=== PATIENT | female | born 1965 | race Caucasian/White ===

== ENCOUNTER → 2017-02-05 | Outpatient (CLI) | payer BC ==
[2017-02-05 10:15] LABS: CH 28.9; HCT 44.5 % (34.0-46.0); HDW 2.65; HGB 14.2 gm/dL (11.4-16.0); MCHC 31.8 g/dL (31.0-37.0); MCV 91.1 fL (80.0-100.0); Mean Platelet Volume 7.5; RBC 4.89 m/uL (3.80-5.40); RDW 13.7 % (11.5-15.5); WBC 8.5 k/uL (3.8-10.6)
[2017-02-05 10:46] LABS: Anion Gap 9 mmol/L; Blood Urea Nitrogen 21 mg/dL (7-17); Calcium 9.3 mg/dL (8.4-10.2); Carbon Dioxide 25 mmol/L (22-30); Chloride 106 mmol/L (98-107); Glucose 81 mg/dL (74-99); Non-African American GFR(MDRD) >60 (>60 ml/min/1.73 sqM); Potassium 4.6 mmol/L (3.5-5.1); Sodium 140 mmol/L (137-145)
== END ==
LOC: LABWHC1 09:08
PROVIDERS: ATTEND Family Medicine
DX: Z01.818 Encounter for other preprocedural examination (principal)
CPT/HCPCS: 80048; 85027

== ENCOUNTER → 2017-12-13 | Outpatient (CLI) | payer BC ==
--- NOTE | 2017-12-13 21:14 | CONS ---
CONSULTATION DATE OF SERVICE: 12/13/2017 This patient is a 52-year-old lady who has been evaluated in the sleep center for possible obstructive sleep apnea-hypopnea syndrome. HISTORY OF PRESENT ILLNESS/SLEEP-WAKE EVALUATION: Patient's usual sleep schedule is from 9 p.m. to 6:30 or 7 a.m. on working days and until 6:30 or 8 a.m. on weekends. Sometimes she has problems with falling asleep, has TV set in the bedroom. She sleeps on the back position. According to her , she snores loudly and possibly has episodes of stopped breathing during sleep. She grinds her teeth, has panic attacks during the night. She wakes up from sleep up to 6 times with one episode of nocturia. No history of hypnagogic hallucinations, sleep paralysis or cataplexy. In the morning she wakes up tired, worries about her sleep, has problems with memory, irritability, depression, anxiety. [place] Sleepiness Scale is increased at 11. PAST MEDICAL HISTORY: 1. Anxiety. 2. Hand arthritis. PAST SURGICAL HISTORY: 1. Left wrist surgery. 2. . MEDICATIONS: 1. Effexor. 2. Trazodone. 3. Naproxen. SOCIAL HISTORY: Negative for smoking. Alcohol consumption is occasional. FAMILY HISTORY: Arthritis, bronchitis, snoring, diabetes in grandfather. REVIEW OF SYSTEMS: Multiple awakenings from sleep, tiredness and sleepiness during the day. PHYSICAL EXAMINATION: Pleasant lady without distress. VITAL SIGNS: BP 141/71 in the right arm and 134/83 in the left arm. Pulse 72, RR 16, height 5 feet 2 inches, weight 216, BMI 39.5. Neck 14-1/2 inches in circumference. Temperature 98.0. Oxygen saturation at room air 98%. HEENT: PERRLA, EOMI. Evaluation of oropharynx showed tongue protrudes midline; low position of soft palate. Wide pillars. Short distance between soft palate and posterior pharyngeal wall. Some asymmetry of the nose. Nasal septum deviation. Slight restriction of nasal breathing. NECK: Supple. No JVD. Thyroid is not palpable. LUNGS: Clear to percussion and to auscultation. Good air exchange. No wheezing or rhonchi. HEART: S1, S2 regular. No murmurs, gallops or rubs. ABDOMEN: Obese. EXTREMITIES : No clubbing or cyanosis. KNOBBER: Awake, alert, and oriented X3. Cranial nerves 2 to 7 intact. There is no fasciculation or atrophy. noted. No focal deficits observed. IMPRESSION: 1. Snoring, possibly witnessed episodes of stopped breathing during sleep, low position of soft palate, wide pillars, small oropharyngeal air space, some restriction of nasal breathing, excessive daytime sleepiness, [place] Sleepiness Scale 11; obstructive sleep apnea-hypopnea syndrome. 2. Obesity. BMI 39.5. 3. Possible nasal septum deviation. 4. Anxiety. 5. History of hand arthritis. 6. Status post left wrist surgery with replacement bone without a bone. 7. Status post section. PLAN: 1. Home sleep apnea test for evaluation of patient's breathing during sleep. 2. CPAP/BiPAP titration if sleep study confirms obstructive sleep apnea-hypopnea syndrome. 3. Preferable position during sleep on the side. 4. No driving if patient feels any sleepiness. Patient is aware of civil and criminal liability for unsafe driving. 5. I will see patient for follow-up visit to explain results of testing and to formulate a plan. Thank you very much for referring this patient for consultation. Sincerely, Valentin Foy MD, PhD, FAASM Diplomat of [place] [employer] [employer] Ukrainian Folk Arts Instructor of [facility] [place] MMODL / LIVIAN: [id number] /
== END | disposition home or self-care (01) ==
LOC: SLEEP 16:09
PROVIDERS: ATTEND Internal Medicine
DX: G47.33 Obstructive sleep apnea (adult) (pediatric) (principal); E66.9 Obesity, unspecified; F41.9 Anxiety disorder, unspecified; Z87.39 Personal history of other diseases of the musculoskeletal system and connective tissue; Z98.890 Other specified postprocedural states; Z68.39 Body mass index [BMI] 39.0-39.9, adult; Z79.899 Other long term (current) drug therapy
CPT/HCPCS: 99211

== ENCOUNTER → 2018-02-14 | Outpatient (CLI) | payer BC ==
--- NOTE | 2018-02-14 18:49 | PN ---
PROGRESS NOTE DATE OF SERVICE: 02/14/2018 This patient is a 52-year-old lady who has been followed in the sleep center for treatment of obstructive sleep apnea-hypopnea syndrome. Recently patient had a home sleep apnea test which documented obstructive sleep apnea-hypopnea syndrome, and subsequently patient was started on treatment with CPAP. She is able to use her CPAP equipment every night. She feels better with the machine; no sleepiness. [place] Sleepiness Scale is 3. Her sleep is better, and again her feeling during the day is better. Patient is using a portable CPAP unit because she travels a lot. She brought her CPAP unit with her, but this unit does not have any information about usage of equipment and it is in automatic regimen. I cannot read apnea-hypopnea index or compliance reading from this machine. PHYSICAL EXAMINATION: GENERAL A pleasant lady in no distress. VITAL SIGNS: BP 114/73, HR 76, RR 16, weight 210, temperature 97.6, oxygen saturation at room air 97%. HEENT: PERRLA, EOMI. Evaluation of oropharynx showed tongue protrudes midline; low position of soft palate. NECK: Supple. No JVD. Thyroid is not palpable. LUNGS: Clear to percussion and to auscultation. Good air exchange. No wheezing or rhonchi. HEART: S1, S2 regular. No murmurs, gallops or rubs. ABDOMEN: Soft and nontender. Bowel sounds are present. No organomegaly appreciated. EXTREMITIES : No clubbing or cyanosis. STRAINER TENDER: Awake, alert, and oriented X3. Cranial nerves 2 to 7 intact. There is no fasciculation or atrophy. noted. No focal deficits observed. IMPRESSION: 1. Obstructive sleep apnea-hypopnea syndrome. Patient is benefitting from CPAP treatment. 2. Obesity. 3. Anxiety. 4. History of hand arthritis, status post left wrist surgery. 5. Status post . PLAN: 1. We will get reading from auto PAP machine. 2. Continue treatment with CPAP every night for the whole night. 3. Losing weight. 4. Sleep hygiene with regular time in bed for at least 8 hours. 5. No driving if feeling any sleepiness. Thank you very much for allowing me to participate in the management of your patient. Sincerely, Valentin Foy MD, PhD, FAASM Diplomat of [employer] [employer] Rag Washer of [facility] [place] MMBEBE / SKY: [id number] /
== END | disposition home or self-care (01) ==
LOC: SLEEP 10:01
PROVIDERS: ATTEND Internal Medicine
DX: G47.33 Obstructive sleep apnea (adult) (pediatric) (principal); E66.9 Obesity, unspecified; F41.9 Anxiety disorder, unspecified; M19.049 Primary osteoarthritis, unspecified hand; Z98.890 Other specified postprocedural states; Z99.89 Dependence on other enabling machines and devices

== ENCOUNTER → 2018-10-17 | Outpatient (CLI) | payer BC ==
--- NOTE | 2018-10-17 14:14 | SFUN ---
SLEEP CENTER FOLLOW UP NOTE DATE OF SERVICE: 10/17/2013 A 53-year-old lady who has been followed in the Sleep Center for treatment of obstructive sleep apnea-hypopnea syndrome. Patient is using her CPAP equipment every night for the whole night without any significant problems related to mask fitting, pressure or humidification. Today is her visit with a new CPAP unit. I checked CPAP unit, range of the pressure 5-16, average pressure is 10 cm of water. Leak is 10 L/minute which is normal range. Apnea-hypopnea index only 1.0, which is absolutely normal. Usage is / nights more than 4 hours, average 7.3 hours per night, which is normal. The patient sleeps well with the machine, feels well during the day. [place] Sleepiness Scale is only 3, which is normal. MEDICATIONS: Effexor, naproxen. PHYSICAL EXAM: Patient in no distress. BP 127/84, HR 68, RR 16, weight 215.8, temperature 98.3, oxygen saturation at room air 98%. OROPHARYNX: Low position of the soft palate. ABDOMEN: Slightly obese. Neck Supple, no JVD. Thyroid is not palpable. LUNGS Clear to percussion and to auscultation. Good air exchange. No wheezing or rhonchi. HEART S1, S2 regular. No murmurs, gallops, or rubs. EXTREMITIES No clubbing or cyanosis. STAGE SETTING PAINTER APPRENTICE Awake, alert, and oriented X3. Cranial nerves 2 to 7 intact. There is no fasciculation or atrophy. noted. No focal deficits observed. IMPRESSION: 1. Obstructive sleep apnea-hypopnea syndrome. Patient demonstrated great compliance with treatment, benefitting from treatment. 2. Obesity. 3. History of anxiety. 4. History of hand arthritis, status post left wrist surgery. 5. Status post . PLAN: 1. Patient will continue to use CPAP equipment every night for the whole night. 2. Will maintain prescriptions for all necessary CPAP supplies. 3. Losing weight. 4. Sleep hygiene with regular time bed for at least 8 hours. 5. No driving if feeling sleepiness. 6. Followup visit in 1 year or earlier if patient has any problems. Thank you very much for allowing me to participate in the management of your patient. Sincerely, Valentin Foy MD, PhD, FAASM Diplomat of [place] [employer] [employer] Internal Medicine Spray Painter of [facility] [place] MMBEBE / SKY: [id number] /
== END ==
LOC: SLEEP 13:13
PROVIDERS: ATTEND Internal Medicine
DX: G47.33 Obstructive sleep apnea (adult) (pediatric) (principal); E66.9 Obesity, unspecified; F41.9 Anxiety disorder, unspecified; M19.049 Primary osteoarthritis, unspecified hand; Z98.890 Other specified postprocedural states; Z99.89 Dependence on other enabling machines and devices; Z79.899 Other long term (current) drug therapy

== ENCOUNTER 2020-05-20 10:48 | Emergency (ER) | payer BC ==
[2020-05-20 10:59] VITALS: RESP 18
[2020-05-20 11:42] LABS: Appearance,Urine Cloudy (Clear); Bacteria,Urine Many /hpf; Bilirubin,Urine Negative (Negative); Blood,Urine Moderate (Negative); Color,Urine Yellow; Glucose,Urine (UA) Negative (Negative); Hyaline Casts,Urine 1 /lpf (0-2); Ketones,Urine Negative (Negative); Leukocyte Esterase,Urine Large (Negative); Mucus,Urine Rare /hpf; Nitrite,Urine Negative (Negative); PH, Urine 5.5 (5.0-8.0); Protein,Urine 1+ (Negative); RBC,Urine 31 /hpf (0-5); Specific Gravity,Urine 1.016 (1.001-1.035); Squamous Epithelial Cell,Urine 5 /hpf (0-4); Urobilinogen,Urine <2.0 mg/dL (<2.0); WBC,Urine >182 /hpf (0-5)
[2020-05-20 12:07] LABS: Basophils # (A) 0.1 k/uL (0-0.2); Basophils % (A) 1 %; Eosinophils # (A) 0.3 k/uL (0-0.7); Eosinophils % (A) 2 %; HCT 38.1 % (34.0-46.0); HGB 12.1 gm/dL (11.4-16.0); Lymphocytes % (A) 22 %; MCH 27.9 pg (25.0-35.0); MCHC 31.8 g/dL (31.0-37.0); MCV 87.7 fL (80.0-100.0); Mean Platelet Volume 7.6; Monocytes # (A) 0.5 k/uL (0-1.0); Monocytes % (A) 4 %; Neutrophils # (A) 9.4 k/uL (1.3-7.7); Neutrophils % (A) 68 %; Platelet Count 373 k/uL (150-450); RBC 4.34 m/uL (3.80-5.40); RDW 14.3 % (11.5-15.5); WBC 13.9 k/uL (3.8-10.6)
--- NOTE | 2020-05-20 12:11 | XR ---
EXAMINATION TYPE: XR chest 2V DATE OF EXAM: 05/20/2020 COMPARISON: NONE HISTORY: Fever TECHNIQUE: Frontal and lateral views of the chest are obtained. FINDINGS: There is no focal air space opacity, pleural effusion, or pneumothorax seen. The cardiac silhouette size is within normal limits. The osseous structures are intact. IMPRESSION: No acute cardiopulmonary process.
--- NOTE | 2020-05-20 12:15 | ED ---
General Adult HPI - General Chief complaint: Fever Stated complaint: fever Time Seen by Provider: 05/20/20 11:02 Source: patient, RN notes reviewed Mode of arrival: ambulatory Limitations: no limitations - History of Present Illness Initial comments: Patient is a pleasant 55-year-old female presenting to the emergency department with fever. Onset of symptoms was a week or so ago. Patient was seen at urgent care and diagnosed with UTI. Patient has been on Macrobid for the past week without improvement of fevers. Patient also has fatigue and myalgias. No dysuria or hematuria or urinary frequency. No cough or dyspnea. No abdominal pain. Patient states there may be some decrease in her sense of taste. - Related Data Home Medications Medication Instructions Recorded Confirmed Acetaminophen/Diphenhydramine 1 tab PO DAILY PRN 05/20/20 05/20/20 [Tylenol PM 500-25mg] Multivitamins, Thera [Multivitamin 1 tab PO DAILY 05/20/20 05/20/20 (formulary)] Naproxen 500 mg PO BID PRN 05/20/20 05/20/20 Nitrofurantoin Monohyd/M-Cryst 100 mg PO BID 05/20/20 05/20/20 [Macrobid] Venlafaxine HCl [Effexor XR] 150 mg PO DAILY 05/20/20 05/20/20 metFORMIN HCL ER [Glucophage Xr] 500 mg PO DAILY 05/20/20 05/20/20 Previous Rx's Medication Instructions Recorded Sulfamethox-Tmp 800-160Mg [Bactrim 1 each PO Q12HR #20 tab 05/20/20 DS 800-160 mg] Allergies Allergy/AdvReac Type Severity Reaction Status Date / Time No Known Allergies Allergy Verified 05/20/20 11:30 Review of Systems ROS Statement: Those systems with pertinent positive or pertinent negative responses have been documented in the HPI. ROS Other: All systems not noted in ROS Statement are negative. Constitutional: Reports: fever, chills Eyes: Denies: eye pain ENT: Denies: ear pain Respiratory: Denies: cough, dyspnea Cardiovascular: Denies: chest pain Endocrine: Reports: fatigue Gastrointestinal: Denies: abdominal pain, nausea, vomiting Genitourinary: Denies: urgency, dysuria Musculoskeletal: Denies: back pain Skin: Denies: rash Neurological: Denies: weakness Past Medical History Past Medical History: Sleep Apnea/CPAP/BIPAP History of Any Multi-Drug Resistant Organisms: None Reported Past Surgical History: Section, Orthopedic Surgery Past Psychological History: Anxiety Smoking Status: Never smoker Past Alcohol Use History: None Reported Past Drug Use History: None Reported General Exam Limitations: no limitations General appearance: alert, in no apparent distress Head exam: Present: normocephalic Eye exam: Present: normal appearance ENT exam: Present: normal oropharynx Neck exam: Present: normal inspection Respiratory exam: Present: normal lung sounds bilaterally Cardiovascular Exam: Present: regular rate, normal rhythm GI/Abdominal exam: Present: soft. Absent: tenderness Extremities exam: Present: normal inspection. Absent: pedal edema, calf tenderness Back exam: Present: normal inspection Neurological exam: Present: alert Psychiatric exam: Present: normal affect, normal mood Course Vital Signs 05/20/20 05/20/20 10:55 12:10 Temperature 98.8 F 98.8 F Pulse Rate 100 Respiratory 18 Rate Blood Pressure 117/72 O2 Sat by Pulse 96 96 Oximetry Medical Decision Making - Medical Decision Making Patient reevaluated and resting comfortably in bed. Patient updated on results and plan. Patient is comfortable with discharge home. Patient is agreeable with close follow-up with her doctor for repeat liver function testing and resul ts from urine culture and alicea virus testing. - Lab Data Result diagrams: 05/20/20 11:54 05/20/20 11:54 Lab Results 05/20/20 05/20/20 05/20/20 Range/Units 11:26 11:54 11:54 WBC 13.9 H (3.8-10.6) k/uL RBC 4.34 (3.80-5.40) m/uL Hgb 12.1 (11.4-16.0) gm/dL Hct 38.1 (34.0-46.0) % MCV 87.7 (80.0-100.0) fL MCH 27.9 (25.0-35.0) pg MCHC 31.8 (31.0-37.0) g/dL RDW 14.3 (11.5-15.5) % Plt Count 373 (150-450) k/uL Neutrophils % 68 % Lymphocytes % 22 % Monocytes % 4 % Eosinophils % 2 % Basophils % 1 % Neutrophils # 9.4 H (1.3-7.7) k/uL Lymphocytes # 3.0 (1.0-4.8) k/uL Monocytes # 0.5 (0-1.0) k/uL Eosinophils # 0.3 (0-0.7) k/uL Basophils # 0.1 (0-0.2) k/uL PT 10.1 (9.0-12.0) sec INR 1.0 (<1.2) APTT 24.2 (22.0-30.0) sec Sodium (137-145) mmol/L Potassium (3.5-5.1) mmol/L Chloride (98-107) mmol/L Carbon Dioxide (22-30) mmol/L Anion Gap mmol/L BUN (7-17) mg/dL Creatinine (0.52-1.04) mg/dL Est GFR (CKD-EPI)AfAm (>60 ml/min/1.73 sqM) Est GFR (CKD-EPI)NonAf (>60 ml/min/1.73 sqM) Glucose (74-99) mg/dL Plasma Lactic Acid Iglesia (0.7-2.0) mmol/L Calcium (8.4-10.2) mg/dL Magnesium (1.6-2.3) mg/dL Total Bilirubin (0.2-1.3) mg/dL AST (14-36) U/L ALT (4-34) U/L Alkaline Phosphatase (38-126) U/L Lactate Dehydrogenase (313-618) U/L C-Reactive Protein (<10.0) mg/L Total Protein (6.3-8.2) g/dL Albumin (3.5-5.0) g/dL Urine Color Yellow Urine Appearance Cloudy H (Clear) Urine pH 5.5 (5.0-8.0) Ur Specific Ronda 1.016 (1.001-1.035) Urine Protein 1+ H (Negative) Urine Glucose (UA) Negative (Negative) Urine Ketones Negative (Negative) Urine Blood Moderate H (Negative) Urine Nitrite Negative (Negative) Urine Bilirubin Negative (Negative) Urine Urobilinogen <2.0 (<2.0) mg/dL Ur Leukocyte Esterase Large H (Negative) Urine RBC 31 H (0-5) /hpf Urine WBC >182 H (0-5) /hpf Urine WBC Clumps Few H (None) /hpf Ur Squamous Epith Cells 5 H (0-4) /hpf Urine Bacteria Many H (None) /hpf Hyaline Casts 1 (0-2) /lpf Urine Mucus Rare H (None) /hpf 05/20/20 05/20/20 Range/Units 11:54 11:54 WBC (3.8-10.6) k/uL RBC (3.80-5.40) m/uL Hgb (11.4-16.0) gm/dL Hct (34.0-46.0) % MCV (80.0-100.0) fL MCH (25.0-35.0) pg MCHC (31.0-37.0) g/dL RDW (11.5-15.5) % Plt Count (150-450) k/uL Neutrophils % % Lymphocytes % % Monocytes % % Eosinophils % % Basophils % % Neutrophils # (1.3-7.7) k/uL Lymphocytes # (1.0-4.8) k/uL Monocytes # (0-1.0) k/uL Eosinophils # (0-0.7) k/uL Basophils # (0-0.2) k/uL PT (9.0-12.0) sec INR (<1.2) APTT (22.0-30.0) sec Sodium 138 (137-145) mmol/L Potassium 3.9 (3.5-5.1) mmol/L Chloride 103 (98-107) mmol/L Carbon Dioxide 27 (22-30) mmol/L Anion Gap 8 mmol/L BUN 27 H (7-17) mg/dL Creatinine 0.77 (0.52-1.04) mg/dL Est GFR (CKD-EPI)AfAm >90 (>60 ml/min/1.73 sqM) Est GFR (CKD-EPI)NonAf 88 (>60 ml/min/1.73 sqM) Glucose 109 H (74-99) mg/dL Plasma Lactic Acid Iglesia 0.8 (0.7-2.0) mmol/L Calcium 9.1 (8.4-10.2) mg/dL Magnesium 2.0 (1.6-2.3) mg/dL Total Bilirubin 0.7 (0.2-1.3) mg/dL AST 88 H (14-36) U/L ALT 101 H (4-34) U/L Alkaline Phosphatase 359 H (38-126) U/L Lactate Dehydrogenase 641 H (313-618) U/L C-Reactive Protein 229.0 H (<10.0) mg/L Total Protein 6.2 L (6.3-8.2) g/dL Albumin 3.2 L (3.5-5.0) g/dL Urine Color Urine Appearance (Clear) Urine pH (5.0-8.0) Ur Specific Ronda (1.001-1.035) Urine Protein (Negative) Urine Glucose (UA) (Negative) Urine Ketones (Negative) Urine Blood (Negative) Urine Nitrite (Negative) Urine Bilirubin (Negative) Urine Urobilinogen (<2.0) mg/dL Ur Leukocyte Esterase (Negative) Urine RBC (0-5) /hpf Urine WBC (0-5) /hpf Urine WBC Clumps (None) /hpf Ur Squamous Epith Cells (0-4) /hpf Urine Bacteria (None) /hpf Hyaline Casts (0-2) /lpf Urine Mucus (None) /hpf - Radiology Data Radiology results: image reviewed (Chest x-ray shows no acute process) Disposition Clinical Impression: Fever, Urinary tract infection Disposition: HOME SELF-CARE Instructions (If sedation given, give patient instructions): Fever in Adults (ED), Urinary Tract Infection in Women (ED) Additional Instructions: Please follow-up with primary care physician in the next day or 2 for recheck. Have primary care physician check urine culture and coronavirus results. Also have primary care physician schedule repeat testing for liver enzymes. Return for pain, worsening fevers, vomiting, worsening or changing symptoms or other concerns. Prescription sent to pharmacy Prescriptions: Sulfamethox-Tmp 800-160Mg [Bactrim DS 800-160 mg] 1 each PO Q12HR #20 tab Is patient prescribed a controlled substance at d/c from ED?: No Referrals: Jelani Fulton MD [Primary Care Provider] - 1-2 days Time of Disposition: 12:58 Decision Time: 12:56
[2020-05-20 12:20] LABS: ALT 101 U/L (4-34); AST 88 U/L (14-36); African American GFR (CKD) >90 (>60 ml/min/1.73 sqM); Albumin 3.2 g/dL (3.5-5.0); Alkaline Phosphatase 359 U/L (38-126); Anion Gap 8 mmol/L; Blood Urea Nitrogen 27 mg/dL (7-17); Calcium 9.1 mg/dL (8.4-10.2); Carbon Dioxide 27 mmol/L (22-30); Chloride 103 mmol/L (98-107); Glucose 109 mg/dL (74-99); LDH 641 U/L (313-618); Non-African American GFR(CKD) 88 (>60 ml/min/1.73 sqM); Potassium 3.9 mmol/L (3.5-5.1); Sodium 138 mmol/L (137-145); Total Bilirubin 0.7 mg/dL (0.2-1.3); Total Protein 6.2 g/dL (6.3-8.2)
[2020-05-20 12:38] LABS: Partial Thromboplastin Time 24.2 sec (22.0-30.0); Prothrombin Time 10.1 sec (9.0-12.0)
[2020-05-20 13:17] VITALS: BP 121/76; PULSE 84; TEMP 98.7
[2020-05-20 17:07] LABS: Ferritin 390.9 ng/mL (10.0-291.0)
== END 2020-05-20 13:16 | disposition home or self-care (01) ==
LOC: EC 10:48
DX: N39.0 Urinary tract infection, site not specified (principal); R53.83 Other fatigue; M79.10 Myalgia, unspecified site; F41.9 Anxiety disorder, unspecified; G47.30 Sleep apnea, unspecified; Z99.89 Dependence on other enabling machines and devices; Z20.828 Contact with and (suspected) exposure to other viral communicable diseases; Z79.84 Long term (current) use of oral hypoglycemic drugs; Z79.899 Other long term (current) drug therapy
CPT/HCPCS: 99283; 36415; 80053; 82728; 83605; 83615; 83735; 85025; 85610; 85730; 86140; 81001; 87040; 87086; 87077; 87186; 84145; 71046; U0003

== ENCOUNTER → 2020-08-12 | Outpatient (CLI) | payer BC ==
--- NOTE | 2020-08-12 19:46 | SFUN ---
SLEEP CENTER FOLLOW UP NOTE DATE OF SERVICE: 08/12/2020 This patient is a 55-year-old lady who has been followed in Sleep Center for treatment of obstructive sleep apnea-hypopnea syndrome. I have not seen the patient for close to 2 years. She continues to use her CPAP equipment every night. No snoring with CPAP. [place] Sleepiness Scale today is 4, which is normal. I checked her CPAP equipment. Range of pressure is 5-16, average pressure 11.4 cm of water. Usage is 30/30 nights, and 29/30 nights for more than 4 hours with average usage 7.8 hours per night. Leak is 11 L/minute, which is acceptable. Apnea-hypopnea index is only 1.0, which is normal. Sometimes the patient has difficulties breathing through the nose, but not always; just occasionally. She is using a nasal mask, Eson 2, medium size. Her medication is Effexor XR 150 mg once a day. PHYSICAL EXAMINATION: GENERAL: A pleasant patient in no distress. VITAL SIGNS: BP 148/80, HR 64, RR 15, height 5 feet 2 inches, weight 239, BMI 43.7, temperature 98.0, oxygen saturation on room air 98%. HEENT: PERRLA, EOMI. Evaluation of oropharynx showed tongue protrudes midline. Low position of soft palate. NECK: Supple. No JVD. Thyroid is not palpable. LUNGS: Clear to percussion and to auscultation. Good air exchange. No wheezing or rhonchi. HEART: S1, S2 regular. No murmurs, gallops or rubs. ABDOMEN: Obese. EXTREMITIES: No clubbing or cyanosis. PENOLOGY PROFESSOR: Awake, alert, and oriented X3. Cranial nerves 2 to 7 intact. There is no fasciculation or atrophy. noted. No focal deficits observed. IMPRESSION: 1. Obstructive sleep apnea-hypopnea syndrome. Patient demonstrated close to 100% compliance with CPAP therapy. 2. History of anxiety. 3. Obesity. 4. History of hand arthritis, status post left wrist surgery. 5. Status post . PLAN: 1. Patient will continue to use PAP equipment every night for the whole night. 2. Sleep hygiene with regular time in bed for at least 7-1/2 to 8 hours. 3. Precautions related to driving. No driving if feeling sleepiness. 4. I will maintain all necessary prescription for PAP supplies including mask, tube, filters. 5. Watching weight. 6. No driving if feeling sleepiness. 7. Follow-up visit in 6 months or earlier if patient has any problems. 8. The patient may use nasal strips to improve her breathing through the nose during sleep. Thank you very much for allowing me to participate in the management of your patient. Sincerely, Valentin Foy MD, PhD, FAASM Diplomat of [employer] Senior Cyber Security Analyst of [facility] [place] MMODL / IJN: [id number] /
== END | disposition home or self-care (01) ==
LOC: SLEEP 13:38
PROVIDERS: ATTEND Internal Medicine
DX: G47.33 Obstructive sleep apnea (adult) (pediatric) (principal); E66.9 Obesity, unspecified; Z86.59 Personal history of other mental and behavioral disorders; Z99.89 Dependence on other enabling machines and devices

== ENCOUNTER → 2020-10-13 | Outpatient (CLI) | payer BC ==
--- NOTE | 2020-10-13 11:54 | MM ---
Reason for exam: screening (asymptomatic). Last mammogram was performed 5 years and 6 months ago. History: Took hormonal contraceptives for 3 years. Physical Findings: A clinical breast exam by your physician is recommended on an annual basis and results should be correlated with mammographic findings. MG Screening Mammo w CAD Bilateral CC and MLO view(s) were taken. Prior study comparison: April 15, 2015, bilateral MG screening mammo w CAD. There are scattered fibroglandular densities. There is no discrete abnormality. No significant changes when compared with prior studies. ASSESSMENT: Benign, BI-RAD 2 RECOMMENDATION: Routine screening mammogram of both breasts in 1 year.
== END | disposition home or self-care (01) ==
LOC: RADMAMWWP 07:09
PROVIDERS: ATTEND Family Medicine
DX: Z12.31 Encounter for screening mammogram for malignant neoplasm of breast (principal)
CPT/HCPCS: 77067

== ENCOUNTER → 2021-02-24 | Outpatient (CLI) | payer BC ==
--- NOTE | 2021-02-24 22:05 | SFUN ---
SLEEP CENTER FOLLOW UP NOTE DATE OF SERVICE: 02/24/2021 This 55-year-old lady has been followed in Sleep Center for treatment of obstructive sleep apnea-hypopnea syndrome. The patient continues to use her CPAP equipment every night for the whole night. No snoring with the machine, although the patient's weight has increased significantly since her previous visit by about 20 pounds, even though she is doing a lot of daytime exercise. [place] Sleepiness Scale were 30. I checked her CPAP unit. Range of the pressure is 5 to 16, average pressure 9.9. Usage is 29/30 nights, and 27/30 for more than 4 hours, average 6.5 hours per night. Leak is only 2 L/minute. Apnea-hypopnea index is 0.6, absolutely perfect. MEDICATIONS: None at the present time. PHYSICAL EXAMINATION: GENERAL: A pleasant patient in no distress. VITAL SIGNS: BP 145/84, HR 55, RR 15, height 5 feet 1-1/2 inches, weight 257.8 pounds, temperature 97.4, oxygen saturation at room air 98%. HEENT: PERRLA, EOMI. Evaluation of oropharynx showed tongue protrudes midline. Low position of soft palate. NECK: Supple. No JVD. Thyroid is not palpable. LUNGS: Clear to percussion and to auscultation. Good air exchange. No wheezing or rhonchi. HEART: S1, S2 regular. No murmurs, gallops or rubs. ABDOMEN: Obese. EXTREMITIES: No clubbing or cyanosis. ROLLER PRINTER: Awake, alert, and oriented X3. Cranial nerves 2 to 7 intact. There is no fasciculation or atrophy. noted. No focal deficits observed. IMPRESSION: 1. Obstructive sleep apnea-hypopnea syndrome. Patient demonstrated great compliance with treatment, benefitting from treatment. Normalization of respiration on CPAP. 2. History of anxiety. 3. History of polycystic ovarian syndrome. 4. Obesity. Patient's weight increased by 18 pounds since previous visit. 5. History of hand arthritis, status post left wrist surgery. 6. Status post section. PLAN: 1. Patient will continue to use PAP equipment every night for the whole night. 2. Sleep hygiene with regular time in bed for at least 7-1/2 to 8 hours. 3. Precautions related to driving. No driving if feeling sleepiness. 4. I will maintain all necessary prescription for PAP supplies including mask, tube, filters. 5. Watching and losing weight. 6. Follow-up visit in 6 months or earlier if patient has any problems. Thank you very much for allowing me to participate in the management of your patient. Sincerely, Valentin Foy MD, PhD, FAASM Diplomat of [employer] S3B Multi Sensor Operator of [facility] [place] MMODL / IJN: [id number] /
== END ==
LOC: SLEEP 11:55
PROVIDERS: ATTEND Internal Medicine
DX: G47.33 Obstructive sleep apnea (adult) (pediatric) (principal); F41.9 Anxiety disorder, unspecified; E66.9 Obesity, unspecified; Z98.891 History of uterine scar from previous surgery; Z87.39 Personal history of other diseases of the musculoskeletal system and connective tissue; Z87.42 Personal history of other diseases of the female genital tract

== ENCOUNTER → 2021-11-03 | Outpatient (CLI) | payer BC ==
--- NOTE | 2021-11-03 23:13 | SFUN ---
SLEEP CENTER FOLLOW UP NOTE DATE OF SERVICE: 11/03/2021 This 56-year-old lady has been followed in Sleep Center for treatment of obstructive sleep apnea-hypopnea syndrome. The patient continues to use her CPAP equipment every night for the whole night. No snoring. She is getting her CPAP supplies on time. [place] Sleepiness Scale today is 3, which is normal. I checked her CPAP unit. It is in automatic regimen. Range of the pressure is 5 to 16, average pressure 9.2 cm of water. Usage is 30/30 nights and 29/30 nights for more than 4 hours with average usage 6.6 hours per night. Leak is zero L/minute. Apnea-hypopnea index is 0.4, which is absolutely normal. MEDICATIONS: 1. Effexor 37.5 mg once a day. 2. Adipex once a day. PHYSICAL EXAMINATION: GENERAL: Pleasant patient in no distress. VITAL SIGNS: BP 153/86, HR 71, RR 16, height 5 feet 1-1/2 inches, weight 241.2 pounds, body mass index 44.7, temperature 97.1, oxygen saturation at room air 95%. HEENT: PERRLA, EOMI, evaluation of oropharynx showed tongue protrudes midline. Low position of soft palate. NECK: Supple, no JVD. Thyroid is not palpable. LUNGS: Clear to percussion and to auscultation. Good air exchange. No wheezing or rhonchi. HEART: S1, S2 regular. No murmurs, gallops, or rubs. ABDOMEN: Obese. EXTREMITIES: No clubbing or cyanosis. SOLICITOR PATENT: Awake, alert, and oriented X3. Cranial nerves 2 to 7 intact. There is no fasciculation or atrophy. noted. No focal deficits observed. IMPRESSION: 1. Obstructive sleep apnea-hypopnea syndrome. Patient demonstrated 100% compliance with treatment. Normal respiration on CPAP. 2. Hypertension in the office. 3. History of anxiety. 4. History of polycystic ovary syndrome. 5. Obesity. BMI 44.7. 6. History of hand arthritis, status post left wrist surgery. 7. Status post . PLAN: 1. Monitoring of blood pressure. 2. Low-sodium diet. 3. Patient will continue to use PAP equipment every night for the whole night. 4. Sleep hygiene with regular time in bed for at least 7-1/2 to 8 hours. 5. Precautions related to driving. No driving if feeling sleepiness. 6. I will maintain all necessary prescription for PAP supplies including mask, tube, filters. 7. Watching weight. 8. Follow-up visit in 6 months or earlier if patient has any problems. Thank you very much for allowing me to participate in the management of your patient. Sincerely, Valentin Foy MD, PhD, FAASM Diplomat of [employer] Sleep Medicine Board of [employer] Head Men'S Tennis Coach of [facility] [place] MMODL / IJN: [id number] /
== END ==
LOC: SLEEP 15:12
PROVIDERS: ATTEND Internal Medicine
DX: G47.33 Obstructive sleep apnea (adult) (pediatric) (principal); I10 Essential (primary) hypertension; F41.9 Anxiety disorder, unspecified; E66.9 Obesity, unspecified; Z68.41 Body mass index [BMI] 40.0-44.9, adult; Z87.59 Personal history of other complications of pregnancy, childbirth and the puerperium; Z98.890 Other specified postprocedural states; Z87.39 Personal history of other diseases of the musculoskeletal system and connective tissue; Z99.89 Dependence on other enabling machines and devices; Z87.42 Personal history of other diseases of the female genital tract

== ENCOUNTER → 2022-05-11 | Outpatient (CLI) | payer BC ==
--- NOTE | 2022-05-11 11:25 | P.PN ---
Subjective DATE: [] FOLLOW UP VISIT. Patient with obstructive sleep apnea hypopnea syndrome return to sleep center for follow-up visit. Information from previous visit have been reviewed. Patient is using PAP equipment every night for the whole night, getting PAP supplies in time. The patient does not have significant problems with the mask, PAP unit and humidification. [place] sleepiness scale is 2. I checked PAP unit. PAP unit pressure 5-16, average 9.9 cm H2O. Usage is 90 % for more then 4 hours, average 5.5 hours per night. Leak is 0 l/m, which is perfect. Apnea Hypopnea Index is 0.6, which is normal. MEDICATIONS:1. Effexor 37.5 mg once a day 2. Phentermine 37.5 mg once a day During physical exam: GENERAL: A pleasant patient without any distress. VITAL SIGNS: BP 135/79, HR 66, RR 18, weight 235.4, temperature 96.4, oxygen saturation at room air 98 % . HEENT: PERRLA, EOMI.low position of soft palate, Mallapati 34. NECK: Supple. No JVD. LUNGS: Clear to percussion and to auscultation. Good air exchange. No wheezing or rhonchi. HEART: S1, S2 regular. ABDOMEN: Soft and nontender. Obese EXTREMITIES: No clubbing or cyanosis. ACCOUNTING PROFESSOR: Awake, alert, and oriented x3. No focal deficit. Impressions: 1. Obstructive sleep apnea-hypopnea syndrome. Patient demonstrated great compliance with treatment, benefiting from treatment. 2. Obesity, patient lost 6 pounds since previous visit. 3. History of anxiety. 4. History of polycystic ovary syndrome. 5. History of hand arthritis status post left wrist surgery. 6. Status post . Plan: 1. Continue using PAP equipment every night for the whole night. 2. To change air filter at least 1-2 times per month. 3. PAP unit should stay lower then position of the head. 4. Advised patient to remove all remaining water from humidifier canister daily and make it dry after each usage. Refill canister with fresh distilled water before each usage. 5. Sleep hygiene with regular time in bed for at least 8 hours. 6. Precautions related to driving. No driving if feel any sleepiness. 7. I will maintain prescription for PAP supplies including mask, tube, filters. 8. Follow up visit in 6 months or earlier if patient has any problems. 9. Continue losing weight. Thank you very much for allowing me to participate in the management of your patient. Valentin Foy MD, PhD, FAASM. Diplomat of [employer], Sleep Medicine Board by [employer] Multicut Line Operator of [facility] [place]
== END ==
LOC: SLEEP 11:04
PROVIDERS: ATTEND Internal Medicine
DX: G47.33 Obstructive sleep apnea (adult) (pediatric) (principal); E66.9 Obesity, unspecified; F41.9 Anxiety disorder, unspecified; Z87.42 Personal history of other diseases of the female genital tract; M19.041 Primary osteoarthritis, right hand; Z98.890 Other specified postprocedural states; Z99.89 Dependence on other enabling machines and devices

== ENCOUNTER → 2023-07-05 | Outpatient (CLI) | payer BC ==
--- NOTE | 2023-07-05 11:27 | P.PN ---
Subjective DATE: 07/05/2023 FOLLOW UP VISIT. Patient with obstructive sleep apnea hypopnea syndrome return to sleep center for follow-up visit. Information from previous visit have been reviewed. Patient is using PAP equipment every night for the whole night, getting PAP supplies in time. The patient does not have significant problems with the mask, PAP unit and humidification. [place] sleepiness scale is 1, which is perfect I checked information from PAP unit. PAP unit pressure 5-16, average 8.3cm H2O. Usage is 100 % for more then 4 hours, average 8 hours per night. Leak is perfect only 1.1 l/m. Apnea Hypopnea Index is 0.5, which is normal. MEDICATIONS:1. Wellbutrin 150 mg once a day 2. Vraylar 1.5 mg once a day 3. Wegovy 2.4 mg once a week During physical exam: GENERAL: A pleasant patient without any distress. VITAL SIGNS: BP 119/81, HR 73, RR 16 , weight 227.8, temperature 98.0, oxygen saturation at room air 97 % . HEENT: PERRLA, EOMI.low position of soft palate, Mallapati 3-4 . NECK: Supple. No JVD. LUNGS: Clear to percussion and to auscultation. Good air exchange. No wheezing or rhonchi. HEART: S1, S2 regular. ABDOMEN: Soft and nontender. Slightly obese EXTREMITIES: No clubbing or cyanosis. VOLUNTEER ASSISTANT: Awake, alert, and oriented x3. No focal deficit. Impressions: 1. Obstructive sleep apnea-hypopnea syndrome. Patient demonstrated great compliance with treatment, benefiting from treatment. 2. Obesity, patient lost 8 pounds since previous visit. 3. History of polycystic ovary syndrome. 4. History of hand arthritis, status post left wrist surgery. 5. History of anxiety. 6. Status post . Plan: 1. Continue using PAP equipment every night for the whole night. 2. To change air filter at least 1-2 times per month. 3. PAP unit should stay lower then position of the head. 4. Advised patient to remove all remaining water from humidifier canister daily and make it dry after each usage. Refill canister with fresh distilled water before each usage. 5. Sleep hygiene with regular time in bed for at least 8 hours. 6. Precautions related to driving. No driving if feel any sleepiness. 7. I will maintain prescription for PAP supplies including mask, tube, filters. 8. Watching and continue losing weight. 9. Follow up visit in 6 months or earlier if patient has any problems. Thank you very much for allowing me to participate in the management of your patient. Valentin Foy MD, PhD, FAASM. Diplomat of [place] [employer], Sleep Medicine Board by [place] [employer] Video Surveillance Technician of [facility] [place]
== END ==
LOC: 3 N SLEEP 10:57
PROVIDERS: ATTEND Internal Medicine
DX: G47.33 Obstructive sleep apnea (adult) (pediatric) (principal); E28.2 Polycystic ovarian syndrome; E66.9 Obesity, unspecified; F41.9 Anxiety disorder, unspecified; Z87.39 Personal history of other diseases of the musculoskeletal system and connective tissue; Z96.632 Presence of left artificial wrist joint; Z99.89 Dependence on other enabling machines and devices; Z98.890 Other specified postprocedural states
CPT/HCPCS: 99212

== ENCOUNTER → 2024-01-24 | Outpatient (CLI) | payer BC ==
--- NOTE | 2024-01-24 11:16 | P.PN ---
Subjective DATE: 01/24/2024 FOLLOW UP VISIT. Patient with obstructive sleep apnea hypopnea syndrome return to sleep center for follow-up visit. Information from previous visit have been reviewed. Patient is using PAP equipment every night for the whole night, getting PAP supplies in time. The patient does not have significant problems with the mask, PAP unit and humidification. [place] sleepiness scale is 1. I checked information from PAP unit. PAP unit pressure 5-16, average 9.2 cm H2O. Usage is 100% for more then 4 hours, average 10.5 hours per night. Leak is 2 l/m, which is in acceptable range. Apnea Hypopnea Index is 0.4, which is normal. MEDICATIONS:1. Bupropion 150 mg once a day 2. Trazodone 25 mg as needed 3. Vraylar 1.5 mg once a day 4. Wegovy 0.7 mg once a week During physical exam: GENERAL: A pleasant patient without any distress. VITAL SIGNS: BP 114/75, HR 72, RR 12, weight 206.6, BMI 38.2, temperature 98.1, oxygen saturation room air 97%. HEENT: PERRLA, EOMI.low position of soft palate, Mallapati 3-4 . NECK: Supple. No JVD. LUNGS: Clear to percussion and to auscultation. Good air exchange. No wheezing or rhonchi. HEART: S1, S2 regular. ABDOMEN: Soft and nontender.[] EXTREMITIES: No clubbing or cyanosis. SKI LIFT ATTENDANT: Awake, alert, and oriented x3. No focal deficit. Impressions: 1. Obstructive sleep apnea-hypopnea syndrome. Patient demonstrated great compliance with treatment, benefiting from treatment. 2. Obesity, patient lost 21 pounds since previous visit, present body mass index 38.2. 3. History of polycystic ovary syndrome. 4. History of anxiety. 5. History of hand arthritis status post left wrist surgery. 6. Status post . Plan: 1. Continue using PAP equipment every night for the whole night. 2. To change air filter at least 1-2 times per month. 3. PAP unit should stay lower then position of the head. 4. Advised patient to remove all remaining water from humidifier canister daily and make it dry after each usage. Refill canister with fresh distilled water before each usage. 5. Sleep hygiene with regular time in bed for at least 8 hours. 6. Precautions related to driving. No driving if feel any sleepiness. 7. I will maintain prescription for PAP supplies including mask, tube, filters. 8. Follow up visit in 6 months or earlier if patient has any problems. 9. Watching and continue losing weight. Thank you very much for allowing me to participate in the management of your patient. Valentin Foy MD, PhD, FAASM. Diplomat of [place] [employer] Sleep Medicine, Sleep Medicine Board by [place] [employer] Medicine Export Administrator of [facility] [place]
== END ==
LOC: 3 N SLEEP 10:35
PROVIDERS: ATTEND Internal Medicine
DX: G47.33 Obstructive sleep apnea (adult) (pediatric) (principal); E66.9 Obesity, unspecified; Z87.42 Personal history of other diseases of the female genital tract; Z86.59 Personal history of other mental and behavioral disorders; Z68.38 Body mass index [BMI] 38.0-38.9, adult; Z98.890 Other specified postprocedural states; Z87.39 Personal history of other diseases of the musculoskeletal system and connective tissue; Z99.89 Dependence on other enabling machines and devices
CPT/HCPCS: 99212

== ENCOUNTER → 2024-07-09 | Outpatient (CLI) | payer BC ==
--- NOTE | 2024-07-16 07:50 | MM ---
Reason for Exam: Screening (asymptomatic). Last mammogram was performed 3 year(s) and 9 month(s) ago. Patient History: Menarche at age 14. Patient used Hormonal Contraceptives for 3 years. Risk Values: Adamaris 5 year model risk: 0.9%. NCI Lifetime model risk: 5.7%. Prior Study Comparison: 12/18/2000 Bilateral Screening Mammogram, [facility]. 04/15/2015 Bilateral Screening Mammogram, [facility]. 10/13/2020 Bilateral Screening Mammogram, [facility]. Tissue Density: The breasts are heterogeneously dense, which may obscure small masses. Findings: Analyzed By CAD. Benign-appearing calcifications. No suspicious grouped calcifications. There is an asymmetric density in the central lower margin of the breast. Recommend spot compression view. Overall Assessment: Incomplete: need additional imaging evaluation, BI-RAD 0 Management: Diagnostic Mammogram of the left breast. . Patient should continue monthly self-breast exams. A clinical breast exam by your physician is recommended on an annual basis. This exam should not preclude additional follow-up of suspicious palpable abnormalities. Note on Adamaris scores and lifetime risk: 1. A Adamaris score greater than 3% is considered moderate risk. If this is the case, consider specialist referral to assess eligibility for a risk reducing agent. 2. If overall lifetime risk for the development of breast cancer is 20% or higher, the patient may qualify for future screening with alternating mammogram and breast MRI. [facility], , 07/16/2024 7:47 AM. Electronically signed and approved by: Jose Dumont M.D. Radiologis
== END | disposition home or self-care (01) ==
LOC: RADMAMWWP 10:14
PROVIDERS: ATTEND Family Medicine
DX: Z12.31 Encounter for screening mammogram for malignant neoplasm of breast
CPT/HCPCS: 77067

== ENCOUNTER → 2024-07-23 | Outpatient (CLI) | payer BC ==
--- NOTE | 2024-07-23 10:35 | MM ---
Reason for Exam: Additional evaluation requested from abnormal screening. Last screening mammogram was performed less than 1 month ago. Patient History: Menarche at age 14. First Full-Term at age 25. Patient used Hormonal Contraceptives for 3 years. Risk Values: Adamaris 5 year model risk: 1.1%. NCI Lifetime model risk: 7.1%. Prior Study Comparison: 04/15/2015 Bilateral Screening Mammogram, [facility]. 10/13/2020 Bilateral Screening Mammogram, [facility]. 07/09/2024 Bilateral MG screening mammo w CAD, [facility]. Tissue Density: Left: The breasts are heterogeneously dense, which may obscure small masses. Findings: Analyzed By CAD. No distinct mass or asymmetric density. No distortion seen. Overall Assessment: Negative, BI-RAD 1 Management: Screening Mammogram of both breasts in 1 year. . Results were given to the patient verbally at the time of exam. Patient should continue monthly self-breast exams. A clinical breast exam by your physician is recommended on an annual basis. This exam should not preclude additional follow-up of suspicious palpable abnormalities. Note on Adamaris scores and lifetime risk: 1. A Adamaris score greater than 3% is considered moderate risk. If this is the case, consider specialist referral to assess eligibility for a risk reducing agent. 2. If overall lifetime risk for the development of breast cancer is 20% or higher, the patient may qualify for future screening with alternating mammogram and breast MRI. [facility], , 07/23/2024 10:32 AM. Electronically signed and approved by: Ken Lorenzo M.D. Radiologis
== END | disposition home or self-care (01) ==
LOC: RADMAMWWP 10:00
PROVIDERS: ATTEND Family Medicine
DX: R92.8 Other abnormal and inconclusive findings on diagnostic imaging of breast
CPT/HCPCS: 77061; 77065

== ENCOUNTER → 2024-08-14 | Outpatient (CLI) | payer BC ==
[2024-08-14 11:12] VITALS: BP 117/77; PULSE 56; RESP 16; TEMP 98.2
--- NOTE | 2024-08-14 11:32 | P.PROGSL ---
Subjective DATE: 08/14/2024 FOLLOW UP VISIT. Patient with obstructive sleep apnea hypopnea syndrome return to sleep center for follow-up visit. Information from previous visit have been reviewed. Patient is using PAP equipment every night for the whole night, getting PAP supplies in time. The patient does not have significant problems with the mask, PAP unit and humidification. [place] sleepiness scale is 1, which is perfect. I checked information from PAP unit. PAP unit pressure 5-14, average 11 cm H2O. Usage is 100% for more then 4 hours, average 9.3 hours per night. Leak is 16 l/m, which is in acceptable range. Apnea Hypopnea Index is 0.7, which is normal. MEDICATIONS have been reviewed, please see below. During physical exam: GENERAL: A pleasant patient without any distress. VITAL SIGNS: Please see below, weight is 186 lbs. HEENT: PERRLA, EOMI.low position of soft palate, Mallapati 34. NECK: Supple. No JVD. LUNGS: Clear to percussion and to auscultation. Good air exchange. No wheezing or rhonchi. HEART: S1, S2 regular. ABDOMEN: Soft and nontender. Slightly obese. EXTREMITIES: No clubbing or cyanosis. EXTENSION SERVICE ADVISOR: Awake, alert, and oriented x3. No focal deficit. Impressions: 1. Obstructive sleep apnea-hypopnea syndrome. Patient demonstrated great compliance with treatment, benefiting from treatment. 2. Obesity, BMI 34.5, patient lost 20 pounds comparing with previous visit. 3. History of anxiety. 4. History of polycystic ovary syndrome. 5. Status post . 6. History of hand arthritis, status post left wrist surgery. Plan: 1. Continue using PAP equipment every night for the whole night. 2. Sleep hygiene with regular time in bed for at least 7.5-8 hours 3. PAP unit should stay lower then position of the head. 4. Advised patient to remove all remaining water from humidifier canister daily and make it dry after each usage. Refill canister with fresh distilled water before each usage. 5. Watching and continue losing weight. 6. Precautions related to driving. No driving if feel any sleepiness. 7. I will maintain prescription for PAP supplies including mask, tube, filters. 8. Follow up visit in 8 months or earlier if patient has any problems. Thank you very much for allowing me to participate in the management of your patient. Valentin Stefadu, MD, PhD, FAASM. Diplomat of [place] [employer], Sleep Medicine Board by [place] [employer] Sorting Machine Operator of [facility] [place] cc: Montez Fulton MD Objective - Vital Signs Vital Signs: Vital Signs Temp 98.2 F 08/14/24 11:11 Pulse 56 L 08/14/24 11:11 Resp 16 08/14/24 11:11 BP 117/77 08/14/24 11:11 Pulse Ox 98 08/14/24 11:11 FiO2 Intake & Output 08/13/24 08/14/24 08/14/24 18:59 06:59 18:59 Weight 84.368 kg Home Medications: Home Medications Medication Instructions Recorded Confirmed Type Acetaminophen/Diphenhydramine 1 tab PO DAILY PRN 05/20/20 08/14/24 History [Tylenol PM 500-25mg] Multivitamins, Thera [Multivitamin 1 tab PO DAILY 05/20/20 08/14/24 History (formulary)] Naproxen 500 mg PO BID PRN 05/20/20 05/20/20 History Nitrofurantoin Monohyd/M-Cryst 100 mg PO BID 05/20/20 05/20/20 History [Macrobid] Sulfamethox-Tmp 800-160Mg [Bactrim 1 each PO Q12HR #20 tab 05/20/20 Rx DS 800-160 mg] Venlafaxine HCl [Effexor XR] 150 mg PO DAILY 05/20/20 05/20/20 History metFORMIN HCL ER [Glucophage Xr] 500 mg PO DAILY 05/20/20 05/20/20 History Semaglutide [Wegovy] 2.4 mg SQ WEEKLY 08/14/24 08/14/24 History buPROPion HCL [buPROPion HCL Xl] 150 mg PO DAILY 08/14/24 08/14/24 History
== END ==
LOC: 3 N SLEEP 10:55
PROVIDERS: ATTEND Internal Medicine
CPT/HCPCS: 99212